=== PATIENT | male | born 1980 | race Asian ===

== ENCOUNTER 2017-04-30 13:36 | Emergency (ER) | payer OTHER ==
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
[2017-04-30 16:53] VITALS: BP 171/114
== END 2017-04-30 16:53 | disposition home or self-care (01) ==
LOC: ER 13:36
DX: M54.5 Low back pain (principal); M79.1 Myalgia; V49.40XA Driver injured in collision with unspecified motor vehicles in traffic accident, initial encounter; I10 Essential (primary) hypertension; F17.210 Nicotine dependence, cigarettes, uncomplicated
CPT/HCPCS: 72110; 99283